=== PATIENT | male | born 1965 | race Caucasian/White ===

== ENCOUNTER 2016-11-23 18:33 | Emergency (ER) | payer SELFPAY ==
[~2016-11-23] VITALS: Ht 175.3 cm; Wt 114.0 kg
[~2016-11-23 18:33] MED LIST: AZITHROMYCIN250 MG PO; AZITHROMYCIN250 MG1 PO; BACTRIM,SEPT1 TABLET PO; CIPRO500 MG PO; CLEOCIN300 MG PO; CLINDAMYCIN HC300 MG PO; FLAGYL500 MG PO; FLORASTOR250 MG PO; HYDROCODON-ACE1 EAC7 PO; KEFLEX500 MG PO; LEVAQUIN750 MG PO; LISINOPRIL10 MG PO; LISINOPRIL20 MG PO; LISINOPRIL40 MG PO; LORTAB 5-325 M1 EACH PO; LOVASTATIN20 MG PO; MOTRIN600 MG PO; MOTRIN800 MG PO; MYCOSTATIN 100,60 ML PO; NAPROSYN500 MG PO; NORCO 5/3251 TABLET PO; PREDNISONE20 MG PO; PREDNISONE50 MG PO; PRILOSEC OTC20 MG PO; PRINIVIL10 MG PO; PROAIR HFA8.5 GM IH; PROTONIX40 MG PO; ROBITUSSIN AC,T10 ML PO; TESSALON200 MG PO; TRAMADOL HCL50 MG PO; VENTOLIN HFA18 GM IH; ZITHROMAX250 MG PO; ZOFRAN4 MG PO
[2016-11-23] MEDS ORDERED: NORCO 5/3251 TABLET PO (20:50)
[2016-11-23 21:08] VITALS: BP 150/82
== END 2016-11-23 21:08 | disposition home or self-care (01) ==
LOC: EME 18:33
DX: S20.211A Contusion of right front wall of thorax, initial encounter (principal); W18.2XXA Fall in (into) shower or empty bathtub, initial encounter; Y93.E1 Activity, personal bathing and showering; I10 Essential (primary) hypertension; Z87.891 Personal history of nicotine dependence
CPT/HCPCS: 71020; 99281; 99283

== ENCOUNTER 2017-09-06 15:25 | Emergency (ER) | payer SELFPAY ==
[~2017-09-06] VITALS: Ht 175.3 cm; Wt 120.5 kg
[2017-09-06] MEDS ORDERED: VALIUM5 MG PO (18:04)
[2017-09-06] MEDS ORDERED: LIDODERM 5% P1 PATCH TD (18:04)
[2017-09-06] MEDS ORDERED: NAPROXEN500 MG PO (18:05)
[2017-09-06 18:27] VITALS: BP 146/77
== END 2017-09-06 18:27 | disposition home or self-care (01) ==
LOC: EME 15:25 → RME 15:25
DX: S39.012A Strain of muscle, fascia and tendon of lower back, initial encounter (principal); W18.41XA Slipping, tripping and stumbling without falling due to stepping on object, initial encounter; Y92.89 Other specified places as the place of occurrence of the external cause; Z88.5 Allergy status to narcotic agent
CPT/HCPCS: 99281; 99284